=== PATIENT | male | born 1985 | race Caucasian/White ===

== ENCOUNTER 2020-06-22 22:24 | Inpatient (IN) | payer OTHER ==
[~2020-06-22] VITALS: Ht 180.3 cm; Wt 70.5 kg
[2020-06-22 22:26] VITALS: BP 151/93
[2020-06-22 22:53] LABS: URINE BILIRUBIN NEGATIVE (Negative); URINE BLOOD NEGATIVE (Negative); URINE CLARITY CLEAR; URINE COLOR YELLOW; URINE GLUCOSE-RANDOM NEGATIVE (Negative); URINE KETONES NEGATIVE (Negative); URINE LEUKOCYTES-REFLEX NEGATIVE (Negative); URINE NITRITE-REFLEX NEGATIVE (Negative); URINE PROTEIN NEGATIVE (Negative); URINE UROBILINOGEN 0.2 E.U./dl (0.2-1.0)
[2020-06-22 22:54] LABS: HEMATOCRIT 41.7 % (42.0-52.0); HEMOGLOBIN 15.1 gm/dL (14.0-18.0); MCH 34.2 pg (26.0-34.0); MCHC 36.2 g/dL (28.0-37.0); MCV 94.5 fL (80.0-100.0); MPV 8.3 fl. (7.2-11.1); NUCLEATED RBCS 0 /100WBC; PLATELET COUNT* 235 thou/uL (150-400); RBC 4.41 mil/uL (4.50-6.00); RDW-CV 13.7 % (10.5-14.5); WBC 7.6 thou/uL (4.0-11.0)
[2020-06-22 23:01] LABS: AMP/METHAMP Negative (Negative); BARBITURATES Negative (Negative); BENZODIAZEPINES Negative (Negative); COCAINE Negative (Negative); METHADONE Negative (Negative); OPIATES Negative (Negative); PCP Negative (Negative); THC POSITIVE (Negative)
[2020-06-22 23:47] LABS: POTASSIUM 5.5 mmol/L (3.5-5.1)
[2020-06-22 23:53] LABS: CREATININE 0.6 mg/dL (0.6-1.3)
[2020-06-22 23:54] LABS: CALCIUM 8.5 mg/dL (8.5-10.1); TOTAL BILIRUBIN 0.7 mg/dL (<0.1-1.0)
[2020-06-22 23:55] LABS: ALBUMIN 3.2 g/dL (3.4-5.0); TOTAL PROTEIN 6.2 g/dL (6.4-8.2)
[2020-06-23 00:02] LABS: ABSOLUTE EOSINOPHILS 0.1 thou/uL (0.0-0.7); ABSOLUTE LYMPHOCYTES 2.8 thou/uL (0.8-5.3); ABSOLUTE MONOCYTES 1.1 thou/uL (0.0-1.2); ABSOLUTE NEUTROPHILS 3.6 thou/uL (1.6-8.1); ANISOCYTOSIS Occasional; PLATELET ESTIMATE ADEQUATE; TOXIC GRANULATION 1+
[2020-06-23 02:00] VITALS: BP 141/91
[2020-06-23 02:15] VITALS: BP 137/89
[2020-06-23 02:34] LABS: CALCIUM 7.2 mg/dL (8.5-10.1); MAGNESIUM 1.7 mg/dL (1.8-2.4)
[2020-06-23 10:15] LABS: ABSOLUTE BASOPHILS 0.1 thou/uL (0.0-0.2); ABSOLUTE MONOCYTES 1.4 thou/uL (0.0-1.2); ABSOLUTE NEUTROPHILS 12.8 thou/uL (1.6-8.1); BASOPHILS 0.4 %; EOSINOPHILS 0.3 %; HEMATOCRIT 44.6 % (42.0-52.0); LYMPHOCYTES 6.8 %; MCH 32.1 pg (26.0-34.0); MCHC 33.6 g/dL (28.0-37.0); MCV 95.6 fL (80.0-100.0); MONOCYTES 8.9 %; MPV 7.9 fl. (7.2-11.1); NUCLEATED RBCS 0 /100WBC; PLATELET COUNT* 195 thou/uL (150-400); POLYS 83.6 %; RBC 4.67 mil/uL (4.50-6.00); RDW-CV 13.8 % (10.5-14.5); WBC 15.3 thou/uL (4.0-11.0)
[2020-06-23 10:34] LABS: ALBUMIN 2.8 g/dL (3.4-5.0); CALCIUM 7.7 mg/dL (8.5-10.1); CREATININE 0.7 mg/dL (0.6-1.3); POTASSIUM 3.5 mmol/L (3.5-5.1); TOTAL BILIRUBIN 0.9 mg/dL (<0.1-1.0); TOTAL PROTEIN 5.8 g/dL (6.4-8.2)
[2020-06-23 12:00] VITALS: BP 133/94
--- NOTE | 2020-06-23 12:47 | EKG ---
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
[2020-06-23 16:00] VITALS: BP 115/84
[2020-06-23 20:00] VITALS: BP 126/98
[2020-06-24 03:27] VITALS: BP 126/90
[2020-06-24 04:00] LABS: ABSOLUTE EOSINOPHILS 0.2 thou/uL (0.0-0.7); ABSOLUTE LYMPHOCYTES 1.4 thou/uL (0.8-5.3); ABSOLUTE MONOCYTES 0.9 thou/uL (0.0-1.2); ABSOLUTE NEUTROPHILS 8.2 thou/uL (1.6-8.1); BASOPHILS 0.4 %; EOSINOPHILS 1.8 %; HEMATOCRIT 38.2 % (42.0-52.0); LYMPHOCYTES 13.1 %; MCH 32.6 pg (26.0-34.0); MCHC 34.1 g/dL (28.0-37.0); MCV 95.6 fL (80.0-100.0); MONOCYTES 8.4 %; NUCLEATED RBCS 0 /100WBC; PLATELET COUNT* 146 thou/uL (150-400); POLYS 76.3 %; RDW-CV 13.8 % (10.5-14.5); WBC 10.7 thou/uL (4.0-11.0)
[2020-06-24 04:08] LABS: CALCIUM 7.7 mg/dL (8.5-10.1); CREATININE 0.6 mg/dL (0.6-1.3); POTASSIUM 3.3 mmol/L (3.5-5.1)
[2020-06-24 08:52] VITALS: BP 127/87
[2020-06-24 09:00] VITALS: BP 149/79
[2020-06-24 13:36] VITALS: BP 122/82
[2020-06-24 18:24] VITALS: BP 149/79
[2020-06-24 20:00] VITALS: BP 120/88
[2020-06-25 00:20] VITALS: BP 113/73
[2020-06-25 04:28] VITALS: BP 101/61
[2020-06-25 04:51] LABS: ALBUMIN 2.3 g/dL (3.4-5.0); CREATININE 0.7 mg/dL (0.6-1.3); PHOSPHORUS* 2.4 mg/dL (2.5-4.9); POTASSIUM 3.5 mmol/L (3.5-5.1); TOTAL BILIRUBIN 1.1 mg/dL (<0.1-1.0); TOTAL PROTEIN 5.7 g/dL (6.4-8.2)
[2020-06-25 04:57] LABS: MAGNESIUM 1.8 mg/dL (1.8-2.4)
[2020-06-25 05:07] LABS: ABSOLUTE EOSINOPHILS 0.1 thou/uL (0.0-0.7); ABSOLUTE LYMPHOCYTES 0.8 thou/uL (0.8-5.3); ABSOLUTE MONOCYTES 1.2 thou/uL (0.0-1.2); ABSOLUTE NEUTROPHILS 6.7 thou/uL (1.6-8.1); BASOPHILS 0.3 %; EOSINOPHILS 1.7 %; HEMATOCRIT 33.1 % (42.0-52.0); HEMOGLOBIN 11.1 gm/dL (14.0-18.0); LYMPHOCYTES 9.5 %; MCH 32.7 pg (26.0-34.0); MCHC 33.7 g/dL (28.0-37.0); MCV 96.9 fL (80.0-100.0); MONOCYTES 13.1 %; MPV 8.8 fl. (7.2-11.1); NUCLEATED RBCS 0 /100WBC; PLATELET COUNT* 124 thou/uL (150-400); POLYS 75.4 %; RBC 3.41 mil/uL (4.50-6.00); RDW-CV 13.7 % (10.5-14.5); WBC 8.9 thou/uL (4.0-11.0)
[2020-06-25 08:00] VITALS: BP 113/80
[2020-06-25 12:00] VITALS: BP 123/82
[2020-06-25 16:00] VITALS: BP 116/76
[2020-06-25 20:00] VITALS: BP 120/89
[2020-06-26] VITALS: BP 120/85
[2020-06-26 04:07] LABS: ALBUMIN 2.1 g/dL (3.4-5.0); CALCIUM 7.9 mg/dL (8.5-10.1); CREATININE 0.7 mg/dL (0.6-1.3); POTASSIUM 3.6 mmol/L (3.5-5.1); TOTAL BILIRUBIN 0.5 mg/dL (<0.1-1.0); TOTAL PROTEIN 5.5 g/dL (6.4-8.2)
[2020-06-26 04:10] LABS: ABSOLUTE EOSINOPHILS 0.2 thou/uL (0.0-0.7); ABSOLUTE LYMPHOCYTES 1.3 thou/uL (0.8-5.3); ABSOLUTE MONOCYTES 0.9 thou/uL (0.0-1.2); ABSOLUTE NEUTROPHILS 5.3 thou/uL (1.6-8.1); BASOPHILS 0.2 %; EOSINOPHILS 2.2 %; HEMATOCRIT 29.4 % (42.0-52.0); HEMOGLOBIN 9.9 gm/dL (14.0-18.0); LYMPHOCYTES 16.9 %; MCH 32.9 pg (26.0-34.0); MCHC 33.6 g/dL (28.0-37.0); MCV 97.8 fL (80.0-100.0); MONOCYTES 11.2 %; MPV 8.6 fl. (7.2-11.1); NUCLEATED RBCS 0 /100WBC; PLATELET COUNT* 128 thou/uL (150-400); POLYS 69.5 %; RBC 3.01 mil/uL (4.50-6.00); RDW-CV 14.3 % (10.5-14.5); WBC 7.7 thou/uL (4.0-11.0)
[2020-06-26 04:43] VITALS: BP 117/86
[2020-06-26 08:00] VITALS: BP 135/92
[2020-06-26] MEDS ORDERED: ROXICODONE5 MG PO (10:26)
[2020-06-26 11:32] VITALS: BP 135/92
== END 2020-06-26 12:08 | disposition home or self-care (01) | DRG 438 ==
LOC: M.ERS 22:24 → M.2W 06-23 01:13 → M.TBA-ER 06-23 01:13 → M.2W 06-23 01:41
PROVIDERS: Internal Medicine; Personal Emergency Response Attendant; ADMIT Internal Medicine; ATTEND Internal Medicine
DX: K85.20 Alcohol induced acute pancreatitis without necrosis or infection (principal); G92 Toxic encephalopathy; F17.210 Nicotine dependence, cigarettes, uncomplicated; F10.10 Alcohol abuse, uncomplicated; F12.90 Cannabis use, unspecified, uncomplicated; Y90.9 Presence of alcohol in blood, level not specified; E86.0 Dehydration; Z20.822 Contact with and (suspected) exposure to COVID-19

== ENCOUNTER 2020-10-23 03:59 | Inpatient (IN) | payer OTHER ==
[~2020-10-23] VITALS: Ht 180.3 cm; Wt 66.7 kg
[~2020-10-23 03:59] MED LIST: ROXICODONE5 MG PO
[2020-10-23 04:14] VITALS: BP 132/92
[2020-10-23 04:27] LABS: URINE BILIRUBIN NEGATIVE (Negative); URINE BLOOD NEGATIVE (Negative); URINE CLARITY CLEAR; URINE COLOR YELLOW; URINE GLUCOSE-RANDOM NEGATIVE (Negative); URINE KETONES NEGATIVE (Negative); URINE LEUKOCYTES-REFLEX NEGATIVE (Negative); URINE NITRITE-REFLEX NEGATIVE (Negative); URINE PROTEIN NEGATIVE (Negative); URINE SPECIFIC GRAVITY 1.015 (1.005-1.030); URINE UROBILINOGEN 0.2 E.U./dl (0.2-1.0)
[2020-10-23 04:32] LABS: ABSOLUTE BASOPHILS 0.1 thou/uL (0.0-0.2); ABSOLUTE EOSINOPHILS 0.3 thou/uL (0.0-0.7); ABSOLUTE LYMPHOCYTES 2.3 thou/uL (0.8-5.3); ABSOLUTE MONOCYTES 1.7 thou/uL (0.0-1.2); ABSOLUTE NEUTROPHILS 10.1 thou/uL (1.6-8.1); BASOPHILS 0.4 %; HEMATOCRIT 45.1 % (42.0-52.0); HEMOGLOBIN 15.2 gm/dL (14.0-18.0); LYMPHOCYTES 15.9 %; MCH 32.7 pg (26.0-34.0); MCHC 33.7 g/dL (28.0-37.0); MONOCYTES 11.9 %; MPV 7.7 fl. (7.2-11.1); NUCLEATED RBCS 0 /100WBC; PLATELET COUNT* 290 thou/uL (150-400); POLYS 69.8 %; RBC 4.65 mil/uL (4.50-6.00); RDW-CV 13.2 % (10.5-14.5); WBC 14.4 thou/uL (4.0-11.0)
[2020-10-23 04:38] LABS: AMP/METHAMP Negative (Negative); BARBITURATES Negative (Negative); BENZODIAZEPINES Negative (Negative); COCAINE Negative (Negative); METHADONE Negative (Negative); OPIATES Negative (Negative); PCP Negative (Negative); THC POSITIVE (Negative)
[2020-10-23 04:42] LABS: CALCIUM 8.8 mg/dL (8.5-10.1); CREATININE 0.8 mg/dL (0.6-1.3); POTASSIUM 3.5 mmol/L (3.5-5.1)
[2020-10-23 04:47] LABS: ALBUMIN 4.4 g/dL (3.4-5.0); TOTAL BILIRUBIN 0.6 mg/dL (<0.1-1.0); TOTAL PROTEIN 7.4 g/dL (6.4-8.2)
[2020-10-23 06:48] LABS: APTT 25.6 Seconds (25.0-31.3); INR 1.1; PROTIME 11.4 Seconds (9.20-11.50)
[2020-10-23 08:15] VITALS: BP 140/92
[2020-10-23 10:50] LABS: CALCIUM 7.6 mg/dL (8.5-10.1); MAGNESIUM 1.3 mg/dL (1.8-2.4); PHOSPHORUS* 4.3 mg/dL (2.5-4.9)
[2020-10-23 12:26] VITALS: BP 143/89
--- NOTE | 2020-10-23 15:42 | EKG ---
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1985 Requested By: Lucille Bernard Order Number: [id number] MD: Guanako Mcghee Measurements Intervals [place] Rate: 68 P: 34 [place]: 51 QRS: 83 QRSD: 105 T: 74 QT: 446 QTc: 475 Interpretive Statements Sinus rhythm Short [place] interval Borderline prolonged QT interval Baseline wander in lead(s) II,III,aVR,aVF,V6 Compared to ECG 06/22/2020 22:50:38 No significant changes Electronically Signed On 10-23-2020 15:42:43 CDT by Guanako Mcghee [email or web address] <ELECTRONICALLY SIGNED> By: Guanako Mcghee MD, [facility] 10/23/20 1542 0428 Guanako Mcghee MD, [facility] /EPI
[2020-10-23 17:33] VITALS: BP 129/68
[2020-10-23 20:00] VITALS: BP 140/77
[2020-10-24] VITALS: BP 139/80
[2020-10-24 04:15] VITALS: BP 123/73
[2020-10-24 04:27] LABS: HEMATOCRIT 38.1 % (42.0-52.0); MCH 32.3 pg (26.0-34.0); MCHC 33.4 g/dL (28.0-37.0); MCV 96.9 fL (80.0-100.0); MPV 8.1 fl. (7.2-11.1); RBC 3.93 mil/uL (4.50-6.00); RDW-CV 13.3 % (10.5-14.5)
[2020-10-24 04:37] LABS: CALCIUM 7.7 mg/dL (8.5-10.1); CREATININE 0.6 mg/dL (0.6-1.3)
[2020-10-24 04:48] LABS: POTASSIUM 2.9 mmol/L (3.5-5.1)
[2020-10-24 05:01] LABS: HEMOGLOBIN 12.7 gm/dL (14.0-18.0)
[2020-10-24 09:57] VITALS: BP 134/92
[2020-10-24 12:00] VITALS: BP 139/87
[2020-10-24 16:00] VITALS: BP 142/99
[2020-10-24 20:00] VITALS: BP 146/87
[2020-10-25 00:45] VITALS: BP 133/77
[2020-10-25 04:00] VITALS: BP 134/87
[2020-10-25 04:34] LABS: CALCIUM 8.1 mg/dL (8.5-10.1); CREATININE 0.6 mg/dL (0.6-1.3); MAGNESIUM 1.7 mg/dL (1.8-2.4); PHOSPHORUS* 3.1 mg/dL (2.5-4.9); POTASSIUM 3.2 mmol/L (3.5-5.1)
[2020-10-25 09:00] VITALS: BP 120/81
[2020-10-25 12:00] VITALS: BP 129/90
[2020-10-25 12:41] LABS: ALBUMIN 3.5 g/dL (3.4-5.0); CALCIUM 8.4 mg/dL (8.5-10.1); CREATININE 0.6 mg/dL (0.6-1.3); MAGNESIUM 2.3 mg/dL (1.8-2.4); POTASSIUM 3.6 mmol/L (3.5-5.1); TOTAL BILIRUBIN 0.4 mg/dL (<0.1-1.0); TOTAL PROTEIN 6.5 g/dL (6.4-8.2)
[2020-10-25 14:37] VITALS: BP 129/90
[2020-10-25] MEDS ORDERED: OXYCODONE HCL 55 MG PO (14:50)
[2020-10-25 16:54] VITALS: BP 129/90
--- NOTE | 2020-10-25 17:48 | EKG ---
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
--- NOTE | 2020-10-28 15:57 | EKG ---
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
== END 2020-10-25 14:57 | disposition home or self-care (01) | DRG 439 ==
LOC: M.ERS 03:59 → M.2W 05:13 → M.TBA-ER 05:13 → M.2W 08:40
PROVIDERS: Family Medicine; Internal Medicine; Personal Emergency Response Attendant; ADMIT Internal Medicine; ATTEND Internal Medicine
DX: K85.20 Alcohol induced acute pancreatitis without necrosis or infection (principal); E87.1 Hypo-osmolality and hyponatremia; F10.20 Alcohol dependence, uncomplicated; E87.6 Hypokalemia; E83.42 Hypomagnesemia; Z20.822 Contact with and (suspected) exposure to COVID-19; F12.90 Cannabis use, unspecified, uncomplicated; F17.200 Nicotine dependence, unspecified, uncomplicated

== ENCOUNTER 2020-12-28 07:11 | Inpatient (IN) | payer OTHER ==
[~2020-12-28] VITALS: Ht 180.3 cm; Wt 72.6 kg
[~2020-12-28 07:11] MED LIST changes: +OXYCODONE HCL 55 MG PO
[2020-12-28 09:04] LABS: CALCIUM 7.5 mg/dL (8.5-10.1); CREATININE 0.9 mg/dL (0.6-1.3); POTASSIUM 4.2 mmol/L (3.5-5.1)
[2020-12-28 09:08] LABS: ALBUMIN 3.2 g/dL (3.4-5.0); TOTAL BILIRUBIN 0.4 mg/dL (<0.1-1.0); TOTAL PROTEIN 5.9 g/dL (6.4-8.2)
[2020-12-28 09:17] LABS: ABSOLUTE EOSINOPHILS 0.1 thou/uL (0.0-0.7); ABSOLUTE LYMPHOCYTES 1.5 thou/uL (0.8-5.3); ABSOLUTE NEUTROPHILS 3.8 thou/uL (1.6-8.1); BASOPHILS 0.6 %; EOSINOPHILS 1.4 %; HEMATOCRIT 37.9 % (42.0-52.0); HEMOGLOBIN 13.4 gm/dL (14.0-18.0); LYMPHOCYTES 22.9 %; MCH 33.7 pg (26.0-34.0); MCHC 35.2 g/dL (28.0-37.0); MCV 95.7 fL (80.0-100.0); MONOCYTES 15.5 %; MPV 7.7 fl. (7.2-11.1); NUCLEATED RBCS 0 /100WBC; PLATELET COUNT* 275 thou/uL (150-400); POLYS 59.6 %; RBC 3.96 mil/uL (4.50-6.00); RDW-CV 13.4 % (10.5-14.5); WBC 6.4 thou/uL (4.0-11.0)
[2020-12-28 13:23] LABS: INR 1.3
[2020-12-28 13:25] LABS: MAGNESIUM 1.9 mg/dL (1.8-2.4); PHOSPHORUS* 3.1 mg/dL (2.5-4.9)
[2020-12-28 14:36] VITALS: BP 140/72
[2020-12-28 15:44] LABS: URINE BILIRUBIN NEGATIVE (Negative); URINE BLOOD NEGATIVE (Negative); URINE CLARITY CLEAR; URINE COLOR YELLOW; URINE GLUCOSE-RANDOM NEGATIVE (Negative); URINE KETONES NEGATIVE (Negative); URINE LEUKOCYTES-REFLEX NEGATIVE (Negative); URINE NITRITE-REFLEX NEGATIVE (Negative); URINE PROTEIN NEGATIVE (Negative); URINE SPECIFIC GRAVITY 1.025 (1.005-1.030); URINE UROBILINOGEN 0.2 E.U./dl (0.2-1.0)
[2020-12-28 15:51] LABS: AMP/METHAMP Negative (Negative); BARBITURATES Negative (Negative); BENZODIAZEPINES Negative (Negative); COCAINE Negative (Negative); METHADONE Negative (Negative); OPIATES Negative (Negative); PCP Negative (Negative); THC POSITIVE (Negative)
[2020-12-28 18:17] VITALS: BP 121/70
[2020-12-28 22:30] VITALS: BP 120/73
[2020-12-29] VITALS (8 sets, daily range): BP systolic 122–143; BP diastolic 71–96
[2020-12-29 04:18] LABS: CALCIUM 7.2 mg/dL (8.5-10.1); CREATININE 0.9 mg/dL (0.6-1.3); MAGNESIUM 1.6 mg/dL (1.8-2.4); PHOSPHORUS* 3.3 mg/dL (2.5-4.9)
--- NOTE | 2020-12-29 18:53 | CON ---
[address] [address] CONSULTATION Name: GEMMA PRETTY Room: [address] ADM IN M.R.#: [id number] Admission: 12/28/20 Attend Phys: Tomeka Newby Discharge: Date of : 85 Report #: [id number] THIS REPORT FOR: cc: FAM - No family physician/PCP FAM - No family physician/PCP Jourdan Rubin MD ~ DATE OF CONSULTATION: 12/29/2020 The patient does not have a PCP. Please note at the time of this dictation, the patient was seen and physically examined by myself. REASON FOR CONSULTATION: Abdominal pain, pancreatitis. HISTORY OF PRESENT ILLNESS: This 35-year-old male who has a longstanding history of alcohol abuse and this is his third admission to [place] for recurrent episodes of alcoholic pancreatitis. The patient was seen in June, October and now again in December for the exact same findings. The patient does admit to drinking alcohol on a daily basis. He states he usually does a 6-pack along with some shots on a daily basis. He states he has been doing this for years. He cannot give me how many years, he has been doing this. The patient states yesterday morning, he woke up and started having severe epigastric abdominal pain. He started vomiting. He was unable to eat or drink anything. He states the pain continued to be constant and he was not improving, prompting him to come in to be further evaluated. He states his pain is in the stomach and radiating into his back. He denies any bright red blood or any melanotic or bright red rectal bleeding upon admission. He has never seen a biology department chair before as well. He denies any reflux at this time. He states his bowels normally move on a regular basis without any bright red blood or melena noted. ALLERGIES: No known drug allergies. MEDICATIONS FROM HOME: None. PAST MEDICAL HISTORY: Recurrent acute on chronic pancreatitis. PAST SURGICAL HISTORY: None. FAMILY HISTORY: Negative for any GI or female cancers. SOCIAL HISTORY: Marijuana daily for recreational use, alcohol abuse, chronic 6-pack plus shots daily[place] [address] CONSULTATION Name: GEMMA PRETTY Room: [address] IN [facility]#: [id number] Admission: 12/28/20 Attend Phys: Tomeka Newby Discharge: Date of : 85 Report #: [id number] REVIEW OF SYSTEMS: Twelve-point review of systems is essentially negative except what is mentioned in the HPI. A 12-point review of systems is essentially negative except what is mentioned in the HPI. PHYSICAL EXAMINATION: VITAL SIGNS: Temperature 36.5, pulse 66, respirations 18, blood pressure 126/82. HEART: Regular rate and rhythm. LUNGS: Diminished, but clear. ABDOMEN: Soft, positive bowel sounds in all four quadrants with extreme tenderness noted in the upper quadrants. LABORATORY DATA: Hemoglobin 13.4, white count is 6.4, platelets are 275. PT 13, INR 1.0. His ammonia level is 33. GFR is 96, total bilirubin 0.4, alkaline phosphatase 103, ALT 71, AST is 109. His alcohol level on admission was 83. Lipase was 792. IMAGING: Shows CT recurrent pancreatitis with diffuse peripancreatic fat stranding and fluid collection noted. Mild intra and extrahepatic ductal dilatation and gallbladder is still present. Ultrasound revealed no intra or extrahepatic dilatation. IMPRESSION: 1. Abdominal pain. 2. Vomiting. 3. Recurrent acute on chronic pancreatitis, third admission since June. 4. Elevated liver function tests. 5. Chronic alcohol abuse, 6-pack plus shots daily as well as THC use recreationally on a daily basis. PLAN: 1. Antacid 250 mL an hour. 2. Ice chips. 3. Labs, acute hepatitis panel. 4. Consider EGD if his vomiting does not resolve. 5. The patient will need an outpatient EUS in 6-8 weeks to evaluate his pancreas and pseudocyst. 6. He needs to quit alcohol altogether. 7. The patient would benefit from pancreatic enzymes once he is able to eat if it is affordable to the patient. 8. Further recommendations to be made after Dr. Rubin [place] [address] CONSULTATION Name: MARIA DE JESUSGEMMAZABRINA LANDAVERDE Room: [address] IN ..#: [id number] Admission: 12/28/20 Attend Phys: Tomeka Newby Discharge: Date of : 85 Report #: [id number] Thank you for allowing us to participate in this patient's care. Please do not hesitate to call with any questions regarding this consult. <ELECTRONICALLY SIGNED> By: Jourdan Rubin MD 12/29/20 1853 0800 [id number] Rubin MD /nt
[2020-12-30] VITALS: BP 139/22
[2020-12-30 02:06] LABS: HEPATITIS B SURFACE AG Negative (Negative)
[2020-12-30 04:00] VITALS: BP 121/80
[2020-12-30 12:00] VITALS: BP 134/84
[2020-12-30 15:10] LABS: CALCIUM 7.8 mg/dL (8.5-10.1); CREATININE 0.7 mg/dL (0.6-1.3); POTASSIUM 3.9 mmol/L (3.5-5.1)
[2020-12-30 16:00] VITALS: BP 128/80
[2020-12-30 20:00] VITALS: BP 121/69
[2020-12-31 01:47] VITALS: BP 145/88
[2020-12-31 04:27] LABS: ABSOLUTE BASOPHILS 0.1 thou/uL (0.0-0.2); ABSOLUTE EOSINOPHILS 0.2 thou/uL (0.0-0.7); ABSOLUTE LYMPHOCYTES 1.3 thou/uL (0.8-5.3); ABSOLUTE MONOCYTES 1.2 thou/uL (0.0-1.2); ABSOLUTE NEUTROPHILS 8.5 thou/uL (1.6-8.1); BASOPHILS 0.5 %; EOSINOPHILS 1.6 %; HEMATOCRIT 32.5 % (42.0-52.0); LYMPHOCYTES 11.7 %; MCH 33.3 pg (26.0-34.0); MCV 97.9 fL (80.0-100.0); MONOCYTES 10.3 %; MPV 8.3 fl. (7.2-11.1); NUCLEATED RBCS 0 /100WBC; POLYS 75.9 %; RBC 3.32 mil/uL (4.50-6.00); RDW-CV 13.9 % (10.5-14.5); WBC 11.2 thou/uL (4.0-11.0)
[2020-12-31 04:38] LABS: ALBUMIN 2.2 g/dL (3.4-5.0); ALKALINE PHOSPHATASE 81 U/L (46-116); ANION GAP 6 mmol/L (7-16); BUN 3 mg/dL (7-18); CALCIUM 7.4 mg/dL (8.5-10.1); CHLORIDE 101 mmol/L (98-107); CHOLESTEROL 113 mg/dL (<200); CO2 27 mmol/L (21-32); CREATININE 0.7 mg/dL (0.6-1.3); GLUCOSE 129 mg/dL (70-99); HDL CHOLESTEROL 33 mg/dL (>40); LDL CHOLESTEROL 57 mg/dL (<100); LIPASE 83 U/L (73-393); SGOT 17 U/L (15-37); SGPT 35 U/L (30-65); SODIUM 134 mmol/L (136-145); TC:HDL 3.4 Ratio (Not establshd); TOTAL BILIRUBIN 0.9 mg/dL (<0.1-1.0); TOTAL PROTEIN 5.1 g/dL (6.4-8.2); TRIGLYCERIDE 118 mg/dL (<150); VLDL 24 mg/dL (<40)
[2020-12-31 04:59] LABS: SERUM ASSESSMENT CLEAR
[2020-12-31 05:17] LABS: PLATELET COUNT* 146 thou/uL (150-400)
[2020-12-31 05:53] VITALS: BP 131/76
[2020-12-31 08:05] VITALS: BP 135/86
[2020-12-31] MEDS ORDERED: VITAMIN B-1100 M1 PO (12:41)
[2020-12-31] MEDS ORDERED: Nicoderm 21MG/24HR P TRANSDERM (12:41)
[2020-12-31] MEDS ORDERED: PRENATAL PO (12:41)
[2020-12-31] MEDS ORDERED: HYDROCODON-ACE1 EAC7 PO (16:54)
[2020-12-31] MEDS ORDERED: ONDANSETRON HCL4 M2 PO (16:54)
[2020-12-31 17:16] VITALS: BP 135/86
[2020-12-31 17:35] VITALS: BP 135/86
[2021-01-02 02:05] LABS: GLYCOHEMOGLOBIN (HGB A1C) 5.4 % (4.8-5.6)
== END 2020-12-31 17:36 | disposition home or self-care (01) | DRG 439 ==
LOC: M.ERS 07:11 → M.2W 09:55 → M.TBA-ER 09:55 → M.2W 12-29 13:56
PROVIDERS: Family Medicine; Internal Medicine Gastroenterology; Nurse Practitioner Adult Health; ADMIT Internal Medicine; ATTEND Internal Medicine
DX: K85.20 Alcohol induced acute pancreatitis without necrosis or infection (principal); E87.1 Hypo-osmolality and hyponatremia; E44.1 Mild protein-calorie malnutrition; F10.139 Alcohol abuse with withdrawal, unspecified; F12.90 Cannabis use, unspecified, uncomplicated; F17.210 Nicotine dependence, cigarettes, uncomplicated; E86.0 Dehydration; Z20.822 Contact with and (suspected) exposure to COVID-19; R74.01 Elevation of levels of liver transaminase levels; K86.0 Alcohol-induced chronic pancreatitis; Z79.899 Other long term (current) drug therapy; Z68.22 Body mass index [BMI] 22.0-22.9, adult